=== PATIENT | female | born 1955 | race African-American/Black ===

== ENCOUNTER 2017-09-07 08:57 | Emergency (ER) | payer OTHER ==
[~2017-09-07] VITALS: Ht 160 cm; Wt 93.6 kg
[~2017-09-07 08:57] MED LIST: ADV500 IH; ASPI-556 PO; COMBIH IH; DIPH25CA85 PO; DOCU-119 PO; FLUT16H NASAL; GUAI100L34 PO; HYDR25TA PO; LISI20TA PO; LORA10TA7 PO; LOSA50TA37 PO; METF500T4 PO; OMEP20TA25 PO; PHEN100C23 PO; PRED20TA3 PO; PROM5SYR PO; SIMV20TA6 PO; VICOT PO
[2017-09-07 09:00] VITALS: BP 143/90
[2017-09-07] MEDS ORDERED: GLIM2 PO (09:07)
[2017-09-07 09:12] LABS: GLUCOSE,POINT OF CARE 98 MG/DL (70-110)
[2017-09-07] MEDS ORDERED: ACETAMINOPHEN 325 MG TABLET PO ONE (09:30)
== END 2017-09-07 09:50 | disposition home or self-care (01) ==
LOC: EMS 08:58
DX: M72.2 Plantar fascial fibromatosis (principal); M25.562 Pain in left knee; I10 Essential (primary) hypertension; J45.909 Unspecified asthma, uncomplicated; E11.9 Type 2 diabetes mellitus without complications; M19.90 Unspecified osteoarthritis, unspecified site; F17.210 Nicotine dependence, cigarettes, uncomplicated; Z88.5 Allergy status to narcotic agent; Z88.8 Allergy status to other drugs, medicaments and biological substances; Z91.018 Allergy to other foods
CPT/HCPCS: 82962; 99282

== ENCOUNTER 2018-05-24 11:28 | Emergency (ER) | payer OTHER ==
[~2018-05-24] VITALS: Ht 162.6 cm; Wt 92.3 kg
[~2018-05-24 11:28] MED LIST changes: +GLIM2 PO; -METF500T4 PO
[2018-05-24] MEDS ORDERED: TIOT185 IH (11:38)
[2018-05-24] MEDS ORDERED: GABA-531 PO (11:38)
[2018-05-24] MEDS ORDERED: DIPH25 PO (11:38)
[2018-05-24] MEDS ORDERED: SUCR1TAB PO (11:38)
[2018-05-24] MEDS ORDERED: MONT10TA21 PO (11:38)
[2018-05-24] MEDS ORDERED: BENZ-51 PO (11:38)
[2018-05-24] MEDS ORDERED: MOME13HF2 IH (11:38)
[2018-05-24] MEDS ORDERED: BISA5TAB96 PO (11:38)
[2018-05-24] MEDS ORDERED: FURO20 PO (11:38)
[2018-05-24 11:48] LABS: GLUCOSE,POINT OF CARE 81 MG/DL (70-110)
[2018-05-24 12:22] LABS: BASOPHILS % (AUTO) 0.5 % (0.0-2.0); EOSINOPHILS % (AUTO) 1.6 % (1.0-6.0); HEMATOCRIT 38.3 % (36-46); HEMOGLOBIN 12.7 g/dL (12.0-16.0); LYMPHOCYTES # (AUTO) 2.4 K/uL (1.0-4.8); LYMPHOCYTES % (AUTO) 47.6 % (22.0-44.0); MEAN CORPUSCULAR HEMOGLOBIN 33.2 pg (26.0-34.0); MEAN CORPUSCULAR HGB CONC 33.1 G/dL (31.0-37.0); MEAN CORPUSCULAR VOLUME 100 fL (80-100); MONOCYTES # (AUTO) 0.5 K/uL (0.1-1.0); MONOCYTES % (AUTO) 8.9 % (2.0-9.0); NEUTROPHILS # (AUTO) 2.1 K/uL (1.8-7.7); NEUTROPHILS % (AUTO) 41.4 % (40.0-70.0); PLATELET COUNT (AUTO) 226 K/uL (150-450); RED BLOOD CELL COUNT(AUTO) 3.83 MIL/uL (4.00-5.20); RED CELL DISTRIBUTION WIDTH 16.1 % (11.5-14.5)
[2018-05-24] MEDS ORDERED: ALBUTEROL SULFATE 2.5 MG/0.5 ML NEB SOLUTION NEB ONE (12:30)
[2018-05-24] MEDS ORDERED: IPRATROPIUM BROMIDE 0.5 MG/2.5 ML NEB SOLUTION NEB ONE (12:30)
[2018-05-24 12:32] LABS: ANION GAP 8 mmol/L (8-16); CALCIUM, TOTAL 9.3 mg/dL (8.8-10.5); CARBON DIOXIDE 32 mmol/L (22-29); CHLORIDE 107 mmol/L (98-107); GLOMERULAR FILTR. RATE CALC 50 mL/min (>60); GLUCOSE,RANDOM 81 mg/dL (70-110); POTASSIUM 3.6 mmol/L (3.5-5.1); SODIUM SERUM 147 mmol/L (136-145); UREA NITROGEN, BLOOD 13 mg/dL (7-18)
[2018-05-24 12:43] LABS: B-TYPE NATRIURETIC PEPTIDE 7 pg/mL (0-100)
[2018-05-24 12:58] LABS: ALANINE AMINOTRANSFERASE 34 U/L (12-78); ALBUMIN 3.8 g/dL (3.4-5.0); ALKALINE PHOSPHATASE 80 U/L (46-116); ASPARTATE AMINOTRANSFERASE 20 U/L (15-37); BILIRUBIN,TOTAL 0.4 mg/dL (0.1-1.0); CREATINE KINASE MB 1.3 ng/mL (0-5); CREATINE KINASE, TOTAL 151 U/L (26-192)
[2018-05-24 13:00] VITALS: BP 121/89
== END 2018-05-24 14:41 | disposition home or self-care (01) ==
LOC: EMS 11:29
DX: J45.909 Unspecified asthma, uncomplicated (principal); J06.9 Acute upper respiratory infection, unspecified; M25.552 Pain in left hip; M19.90 Unspecified osteoarthritis, unspecified site; E11.9 Type 2 diabetes mellitus without complications; I10 Essential (primary) hypertension; F17.210 Nicotine dependence, cigarettes, uncomplicated; Z79.82 Long term (current) use of aspirin; Z79.899 Other long term (current) drug therapy; Z88.6 Allergy status to analgesic agent; Z91.018 Allergy to other foods
CPT/HCPCS: 71045; 72170; 80053; 82550; 82553; 82962; 83880; 84484; 85025; 85610; 85730; 93005; 94640; 99285; J7613

== ENCOUNTER 2019-10-24 09:38 | Emergency (ER) | payer MEDICARE, OTHER ==
[~2019-10-24] VITALS: Ht 162.6 cm; Wt 90.9 kg
[~2019-10-24 09:38] MED LIST changes: -ADV500 IH; +BENZ-51 PO; +BISA5TAB96 PO; +DIPH25 PO; +FURO20 PO; +GABA-531 PO; -GUAI100L34 PO; -HYDR25TA PO; -LISI20TA PO; +LOSA-88 PO; -LOSA50TA37 PO; +MOME13HF2 IH; +MONT10TA21 PO; -OMEP20TA25 PO; -PHEN100C23 PO; -PRED20TA3 PO; -PROM5SYR PO; -SIMV20TA6 PO; +SUCR1TAB PO; +TIOT185 IH
[2019-10-24 10:00] LABS: GLUCOSE,POINT OF CARE 97 MG/DL (70-110)
[2019-10-24] MEDS ORDERED: MULT-1203 PO (10:00)
[2019-10-24] MEDS ORDERED: ALBU8.5H8 IH (10:03)
[2019-10-24] MEDS ORDERED: GLIM2 PO (10:03)
[2019-10-24] MEDS ORDERED: ACET-2247 PO (10:03)
[2019-10-24] MEDS ORDERED: SUCR1TAB PO (10:03)
[2019-10-24] MEDS ORDERED: 0.9% SODIUM CHLORIDE 5 ML NEB SOLUTION NEB ONE (12:41)
[2019-10-24] MEDS ORDERED: IPRATROPIUM BROMIDE 0.5 MG/2.5 ML NEB SOLUTION NEB ONE (12:45)
[2019-10-24] MEDS ORDERED: ACETAMINOPHEN 500 MG TABLET PO ONE (12:45)
[2019-10-24] MEDS ORDERED: ALBUTEROL SULFATE 5 MG/ML 20 ML NEB SOLN [BULK] NEB ONE (12:45)
[2019-10-24 13:07] LABS: BASOPHILS % (AUTO) 0.8 % (0.0-2.0); EOSINOPHILS % (AUTO) 3.2 % (1.0-6.0); HEMATOCRIT 38.2 % (36-46); HEMOGLOBIN 12.5 g/dL (12.0-16.0); LYMPHOCYTES % (AUTO) 60.5 % (22.0-44.0); MEAN CORPUSCULAR HEMOGLOBIN 31.8 pg (26.0-34.0); MEAN CORPUSCULAR HGB CONC 32.7 G/dL (31.0-37.0); MEAN CORPUSCULAR VOLUME 97 fL (80-100); MONOCYTES # (AUTO) 0.4 K/uL (0.1-1.0); MONOCYTES % (AUTO) 8.4 % (2.0-9.0); NEUTROPHILS # (AUTO) 1.4 K/uL (1.8-7.7); NEUTROPHILS % (AUTO) 27.1 % (40.0-70.0); PLATELET COUNT (AUTO) 228 K/uL (150-450); RED BLOOD CELL COUNT(AUTO) 3.93 MIL/uL (4.00-5.20); RED CELL DISTRIBUTION WIDTH 15.9 % (11.5-14.5)
[2019-10-24 13:16] LABS: CALCIUM, TOTAL 9.4 mg/dL (8.8-10.5); CREATININE 1.34 mg/dL (0.60-1.30); POTASSIUM 4.5 mmol/L (3.5-5.1)
[2019-10-24 13:22] LABS: ALBUMIN 4.1 g/dL (3.4-5.0); BILIRUBIN,TOTAL 0.3 mg/dL (0.1-1.0); TOTAL PROTEIN, SERUM 7.4 g/dL (6.4-8.2)
[2019-10-24 13:35] LABS: INFLUENZA TYPE A NEGATIVE FOR TYPE A (NEGATIVE); INFLUENZA TYPE B NEGATIVE FOR TYPE B (NEGATIVE)
[2019-10-24 14:13] VITALS: BP 117/68
[2019-10-24] MEDS ORDERED: AZITHROMYCIN 250 MG TABLET PO ONE (14:15)
== END 2019-10-24 14:25 | disposition home or self-care (01) ==
LOC: EMS 09:38
DX: J44.1 Chronic obstructive pulmonary disease with (acute) exacerbation (principal); J45.901 Unspecified asthma with (acute) exacerbation; J32.9 Chronic sinusitis, unspecified; I11.0 Hypertensive heart disease with heart failure; I50.9 Heart failure, unspecified; E11.9 Type 2 diabetes mellitus without complications; F17.210 Nicotine dependence, cigarettes, uncomplicated; Z79.82 Long term (current) use of aspirin; Z88.1 Allergy status to other antibiotic agents; Z88.8 Allergy status to other drugs, medicaments and biological substances; Z91.018 Allergy to other foods
CPT/HCPCS: 87040; 87804; 93005; 94644; 99406

== ENCOUNTER 2022-10-14 11:47 | Day surgery (SDC) | payer MEDICARE, OTHER ==
[~2022-10-14] VITALS: Ht 139.7 cm; Wt 79.4 kg
[~2022-10-14 11:47] MED LIST changes: +ALBU8.5H8 IH; -BENZ-51 PO; -COMBIH IH; -DIPH25 PO; +DULO20CA71 PO; -FLUT16H NASAL; +FLUT16SP NASAL; -GABA-531 PO; -LORA10TA7 PO; +LOSA-382 PO; -LOSA-88 PO; +MONT-35 PO; -MONT10TA21 PO; +MULT-1203 PO; +SODIUM CHLORIDE 0.9% 1,000 ML IV ONE; -SUCR1TAB PO; -TIOT185 IH; -VICOT PO
[2022-10-14] MEDS ORDERED: PROPOFOL 1% 20 ML VIAL IVP ONE (11:48)
[2022-10-14] MEDS ORDERED: LIDOCAINE/PF 2% 5 ML SYRINGE IVP ONE (11:48)
[2022-10-14 12:09] LABS: COVID AG,FIA SOURCE NASAL SWAB
[2022-10-14 13:01] LABS: GLUCOMETER DEV NAME(LOC) SDS.; GLUCOSE,POINT OF CARE 73 MG/DL (70-110)
[2022-10-14] MEDS ORDERED: DEXTROSE 5%-LACTATED RINGERS 1,000 ML IV ONE (13:30)
[2022-10-14 13:51] LABS: GLUCOMETER DEV NAME(LOC) SDS.; GLUCOSE,POINT OF CARE 97 MG/DL (70-110)
[2022-10-14] MEDS ORDERED: SODIUM CHLORIDE 0.9% 1,000 ML IV ONE (14:30)
== END 2022-10-14 16:05 | disposition home or self-care (01) ==
LOC: SURGERY 11:47
PROVIDERS: ATTEND Internal Medicine Gastroenterology
DX: Z09 Encounter for follow-up examination after completed treatment for conditions other than malignant neoplasm (principal); K63.5 Polyp of colon; K57.30 Diverticulosis of large intestine without perforation or abscess without bleeding; I10 Essential (primary) hypertension; E11.9 Type 2 diabetes mellitus without complications; K64.8 Other hemorrhoids; Z20.822 Contact with and (suspected) exposure to COVID-19; Z87.01 Personal history of pneumonia (recurrent); I25.2 Old myocardial infarction; Z79.899 Other long term (current) drug therapy; Z98.890 Other specified postprocedural states; Z88.8 Allergy status to other drugs, medicaments and biological substances
CPT/HCPCS: 45385; 87426; 82962; 88305; C1769; J2704; J3490; C9803

== ENCOUNTER 2022-12-03 10:36 | Emergency (ER) | payer MEDICARE, OTHER ==
[~2022-12-03] VITALS: Ht 152.4 cm; Wt 77.3 kg
[~2022-12-03 10:36] MED LIST changes: +MOME13HF12 IH; -MOME13HF2 IH; -SODIUM CHLORIDE 0.9% 1,000 ML IV ONE
[2022-12-03 15:02] LABS: COVID AG,FIA SOURCE NASAL SWAB
[2022-12-03] MEDS ORDERED: PSEUDOEPHEDRINE HCL 30 MG TABLET PO ONE (16:00)
[2022-12-03 16:13] LABS: INFLUENZA TYPE A NEGATIVE FOR TYPE A (NEGATIVE); INFLUENZA TYPE B NEGATIVE FOR TYPE B (NEGATIVE)
[2022-12-03 17:00] VITALS: BP 144/84
== END 2022-12-03 17:02 | disposition home or self-care (01) ==
LOC: EMS 10:38
DX: J32.9 Chronic sinusitis, unspecified (principal); J06.9 Acute upper respiratory infection, unspecified; M19.90 Unspecified osteoarthritis, unspecified site; J45.909 Unspecified asthma, uncomplicated; J44.9 Chronic obstructive pulmonary disease, unspecified; E11.9 Type 2 diabetes mellitus without complications; I10 Essential (primary) hypertension; F17.210 Nicotine dependence, cigarettes, uncomplicated; Z98.890 Other specified postprocedural states; Z88.2 Allergy status to sulfonamides; Z91.018 Allergy to other foods; Z88.8 Allergy status to other drugs, medicaments and biological substances; Z20.822 Contact with and (suspected) exposure to COVID-19
CPT/HCPCS: 87804; 99283

== ENCOUNTER 2024-10-17 13:34 | Emergency (ER) | payer MEDICARE, OTHER ==
[~2024-10-17] VITALS: Ht 157.5 cm; Wt 77.3 kg
[~2024-10-17 13:34] MED LIST changes: -FURO20 PO; +FURO20TA5 PO; -GLIM2 PO; +GLIM2TAB35 PO
[2024-10-17] MEDS ORDERED: CEPH-556 PO (13:42)
[2024-10-17] MEDS ORDERED: AMOX1TAB41 PO (13:42)
[2024-10-17 14:09] LABS: COVID AG,FIA SOURCE NASAL SWAB
[2024-10-17 14:44] LABS: INFLUENZA TYPE A NEGATIVE FOR TYPE A (NEGATIVE); INFLUENZA TYPE B NEGATIVE FOR TYPE B (NEGATIVE); SARS-COV2 (COVID) ANTIGEN,FIA Negative (Negative)
[2024-10-17] MEDS ORDERED: METO-408 PO (14:48)
[2024-10-17] MEDS ORDERED: BACL10TA PO (14:48)
[2024-10-17] MEDS ORDERED: HYDR-4069 PO (14:48)
[2024-10-17] MEDS ORDERED: EMPA10TA3 PO (14:48)
[2024-10-17] MEDS ORDERED: DICL112S3 TP (14:48)
[2024-10-17] MEDS ORDERED: ASCO500T20 PO (14:48)
[2024-10-17] MEDS ORDERED: NALO25TA4 PO (14:48)
[2024-10-17] MEDS ORDERED: ASPI-1444 PO (14:48)
[2024-10-17] MEDS ORDERED: CYAN500T56 PO (14:48)
[2024-10-17] MEDS ORDERED: ALBU18HF12 IH (14:48)
[2024-10-17] MEDS ORDERED: FLUT100B IH (14:48)
[2024-10-17] MEDS ORDERED: CALC-1271 PO (14:48)
[2024-10-17] MEDS ORDERED: IBUP-1506 PO (17:26)
[2024-10-17] MEDS ORDERED: AMOX-457 PO (17:26)
[2024-10-17] MEDS: AMOX TR/POT CLAV 875 MG/125 MG TABLET PO ONE (17:35)
[2024-10-17 17:42] VITALS: BP 157/79; PULSE 79; RESP 18; TEMP 97.6; O2SAT 96
[2024-10-17] MEDS ORDERED: ACET-3385 PO (17:58)
[2024-10-17] MEDS ORDERED: MONT-35 PO (17:58)
== END 2024-10-17 18:04 | disposition home or self-care (01) ==
LOC: EMS 13:34
DX: J32.9 Chronic sinusitis, unspecified (principal); M19.90 Unspecified osteoarthritis, unspecified site; J44.89 Other specified chronic obstructive pulmonary disease; E11.9 Type 2 diabetes mellitus without complications; I10 Essential (primary) hypertension; G40.909 Epilepsy, unspecified, not intractable, without status epilepticus; G89.29 Other chronic pain; M25.562 Pain in left knee; F17.210 Nicotine dependence, cigarettes, uncomplicated; Z98.890 Other specified postprocedural states; Z79.82 Long term (current) use of aspirin; Z79.899 Other long term (current) drug therapy; Z88.2 Allergy status to sulfonamides; Z88.8 Allergy status to other drugs, medicaments and biological substances; Z20.822 Contact with and (suspected) exposure to COVID-19
CPT/HCPCS: 71045; 87804; 99284

== ENCOUNTER 2025-04-12 11:06 | Emergency (ER) | payer MEDICARE, OTHER ==
[~2025-04-12] VITALS: Ht 154.9 cm; Wt 77.3 kg
[~2025-04-12 11:06] MED LIST changes: +ACET-3385 PO; +ALBU18HF12 IH; -ALBU8.5H8 IH; +AMOX-457 PO; +ASCO500T20 PO; +ASPI-1444 PO; -ASPI-556 PO; +BACL10TA PO; +CALC-1271 PO; +CEPH-556 PO; +CYAN500T56 PO; +DICL112S3 TP; -DULO20CA71 PO; +EMPA10TA3 PO; +FLUT100B IH; -GLIM2TAB35 PO; +HYDR-4069 PO; +METO-408 PO; -MOME13HF12 IH; +NALO25TA4 PO
[2025-04-12 11:14] VITALS: TEMP 98.4
[2025-04-12] MEDS ORDERED: LOSA100T59 PO (11:16)
[2025-04-12 11:40] LABS: APPEARANCE,URINE CLEAR (CLEAR); GLUCOSE, URINE (UA) >=1000 mg/dL (NEGATIVE); LEUKOCYTE ESTERASE ,URINE NEGATIVE (NEGATIVE); NITRATE,URINE NEGATIVE (NEGATIVE); OCCULT BLOOD,URINE NEGATIVE (NEGATIVE); SPECIFIC GRAVITIY, URINE 1.021 (1.003-1.030)
[2025-04-12] MEDS: AMOX TR/POT CLAV 875 MG/125 MG TABLET PO ONE (11:41)
[2025-04-12 11:45] LABS: PLATELET COUNT (AUTO) 216 K/uL (150-450); RED BLOOD CELL COUNT(AUTO) 3.88 MIL/uL (4.00-5.20); RED CELL DISTRIBUTION WIDTH 15.5 % (11.5-14.5); WHITE BLOOD COUNT (AUTO) 5.0 K/uL (4.5-11.0)
[2025-04-12 11:53] LABS: CALCIUM, TOTAL 9.5 mg/dL (8.8-10.5); CREATININE 1.5 mg/dL (0.60-1.30); GLOMERULAR FILTR. RATE CALC 41.0 mL/min (>60); GLUCOSE,RANDOM 104.0 mg/dL (70-110); SODIUM SERUM 143.0 mmol/L (136-145); UREA NITROGEN, BLOOD 19.0 mg/dL (7-18)
[2025-04-12] MEDS: NYSTATIN 500,000 UNITS/5 ML SUSPENSION UDCUP PO ONE (11:53)
[2025-04-12 12:03] LABS: SQUAMOUS EPITHELIAL CELL,UR Moderate /LPF (None Seen)
[2025-04-12 12:09] LABS: ASPARTATE AMINOTRANSFERASE 13.0 U/L (15-37); TOTAL PROTEIN, SERUM 7.1 g/dL (6.4-8.2)
[2025-04-12] MEDS ORDERED: AMOX-457 PO (12:12)
[2025-04-12 12:24] VITALS: BP 141/98; PULSE 83; RESP 18; O2SAT 99
== END 2025-04-12 12:30 | disposition home or self-care (01) ==
LOC: EMS 11:08
DX: B37.0 Candidal stomatitis (principal); K02.9 Dental caries, unspecified; R60.9 Edema, unspecified; I11.0 Hypertensive heart disease with heart failure; I50.9 Heart failure, unspecified; E11.9 Type 2 diabetes mellitus without complications; E78.00 Pure hypercholesterolemia, unspecified; G40.909 Epilepsy, unspecified, not intractable, without status epilepticus; J44.89 Other specified chronic obstructive pulmonary disease; F17.210 Nicotine dependence, cigarettes, uncomplicated; Z88.8 Allergy status to other drugs, medicaments and biological substances; Z88.2 Allergy status to sulfonamides; Z79.82 Long term (current) use of aspirin; Z79.899 Other long term (current) drug therapy; Z98.890 Other specified postprocedural states
CPT/HCPCS: 80048; 80076; 81001; 85025; 99283